=== PATIENT | male | born 1955 | race Caucasian/White ===

== ENCOUNTER 2018-12-24 18:23 | Emergency (ER) | payer MEDICARE ==
[2018-12-24] MEDS ORDERED: DUONEB 0.5-3 MG/3 ml Neb IH ONE (18:35)
[2018-12-24] MEDS ORDERED: PROVENTIL 2.5 MG/3 ML NEB IH ONE ×2 (18:38→18:42)
[2018-12-24 18:54] LABS: BASOPHIL % 0.3 % (0.0-0.4); Basophil (Absolute #) 0.02 (0-0.4); Eosinophil % 1.8 % (0.00-5.0); Eosinophil (Absolute #) 0.11 (0-0.5); Granulocytes % 74.9 % (36.0-66.0); Hematocrit 33.3 % (42-50); Hemoglobin 9.4 gm/dl (12.5-18.0); Lymphocyte (Absolute #) 0.97 (1.0-4.6); Lymphocytes % 15.8 % (24.0-44.0); Mean Corpuscular Hgb Concent. 28.2 g/dl (32-36); Mean Platelet Volume 9.1 fl (6-9.5); Monocyte (Absolute #) 0.44 (0.0-1.3); Monocytes % 7.2 % (0.0-12.0); Platelet Count 216 K/mm3 (150-450); Red Blood Count 3.62 M/mm3 (4.1-5.6); Red Cell Distribution Width 14.2 % (11.5-14.0); White Blood Count 6.1 K/mm3 (4.0-10.5)
[2018-12-24 19:00] LABS: Mean Corpuscular Hemoglobin 25.9 pg (26-32)
--- NOTE | 2018-12-24 19:08 | ERPHSYRPT ---
- History of Present Illness Time Seen by Provider: 12/24/18 19:04 Source: patient, family Exam Limitations: no limitations Patient Subjective Stated Complaint: pt here for sob worse today with productive cough yellow/brown, no fever, chest pain started a week off and on, last 2 days has been consant, pt states pain is substernal, pt wears home 02, open heart 2 month ago, pacemaker in 2017 Triage Nursing Assessment: pt alert, resp labored with excertion, skin w/d/p, nailbeds pale, o2 at 2 l nc, edema to lower legs and red in color. bs dimiinished. abd soft, nontender Physician History: pt had valuloplasy outside hospital 2 months ago and developed SOB today - no Chest pain; no fever , has productive sputu, denies CAD but has pacer; Timing/Duration: today Activities at Onset: none Severity of Dyspnea-Max: moderate Severity of Dyspnea-Current: moderate Possible Cause: occasional episodes Modifying Factors: Improves With: nothing Associated Symptoms: cough, wheezing Allergies/Adverse Reactions: No Known Drug Allergies Allergy (Unverified 12/24/18 18:43) Home Medications: Albuterol Sulfate [Proair Hfa] 2 puffs DAILY 12/24/18 [History] Amiodarone HCl 200 mg BID 12/24/18 [History] Apixaban [Eliquis] 5 mg DAILY 12/24/18 [History] Apremilast [Otezla] 30 mg .ROUTE BID 12/24/18 [History] Aspirin EC 81 mg [Ecotrin 81 mg] 81 mg DAILY 12/24/18 [History] Atorvastatin Calcium 40 mg DAILY 12/24/18 [History] Carvedilol 3.125 mg [Coreg 3.125 MG] 3.125 mg BID 12/24/18 [History] Docusate Sodium 100 mg [Colace 100 MG] 100 mg DAILY 12/24/18 [History] Empagliflozin [Jardiance] 10 mg DAILY 12/24/18 [History] Ferrous Sulfate 325 mg DAILY 12/24/18 [History] Fluoxetine HCl 40 mg DAILY 12/24/18 [History] Furosemide 20 mg DAILY 12/24/18 [History] Ipratropium/Albuterol Sulfate [Iprat-Albut 0.5-3(2.5) mg/3 ml] 3 ml IH Q6HPRN PRN 12/24/18 [History] PANTOPRAZOLE 40 mg Tablet [Protonix 40MG Tablet] 40 mg DAILY 12/24/18 [ History] Spironolactone 25 mg [Aldactone 25 MG] 25 mg DAILY 12/24/18 [History] Umeclidinium Brm/Vilanterol Tr [Anoro Ellipta 62.5-25 Mcg INH] 1 puff DAILY 03/04 [History] glipiZIDE [Glipizide] 5 mg BID 12/24/18 [History] Hx Influenza Vaccination/Date Given: Yes Hx Pneumococcal Vaccination/Date Given: Yes Immunizations Up to Date: Yes - Review of Systems Constitutional: No Fever, No Chills Eyes: No Symptoms Ears, Nose, & Throat: No Symptoms Respiratory: Cough, Dyspnea, Wheezing Cardiac: Edema, No Chest Pain, No Syncope Abdominal/Gastrointestinal: No Abdominal Pain, No Nausea, No Vomiting, No Diarrhea Genitourinary Symptoms: No Dysuria Musculoskeletal: No Back Pain, No Neck Pain Skin: No Rash Neurological: No Dizziness, No Focal Weakness, No Sensory Changes Psychological: No Symptoms Endocrine: No Symptoms All Other Systems: Reviewed and Negative - Past Medical History Pertinent Past Medical History: Yes Cardiac History: Congestive Heart Failure, Coronary Artery Disease, High Cholesterol, Hypertension Respiratory History: COPD Endocrine Medical History: Diabetes Type II Musculoskeletal History: Arthritis GI Medical History: Other Psycho-Social History: Anxiety, Depression - Past Surgical History Past Surgical History: Yes Cardiac: CABG, Cardiac Catheterization, Pacemaker Musculoskeletal: Orthopedic Surgery Other Surgical History: knees - Social History Smoking Status: Former smoker Exposure to second hand smoke: No Drug Use: none Patient Lives Alone: No - Nursing Vital Signs Nursing Vital Signs: Initial Vital Signs Temperature 98.8 F 12/24/18 18:24 Pulse Rate 91 H 12/24/18 18:24 Respiratory Rate 32 H 12/24/18 18:24 Blood Pressure 126/65 12/24/18 18:24 O2 Sat by Pulse Oximetry 88 L 12/24/18 18:24 Pain Scale Pain Intensity 0 - Physical Exam General Appearance: no apparent distress, alert Eye Exam: PERRL/EOMI Neck Exam: normal inspection, supple Respiratory Exam: airway intact, crackles/rales, rhonchi, wheezing Cardiovascular/Chest Exam: normal heart sounds, regular rate/rhythm Abdominal/Gastrointestinal Exam: soft, No tenderness, No distention, No mass Extremity Exam: non-tender, normal range of motion, normal inspection, no calf tenderness, no pedal edema Neurologic Exam: alert, oriented x 3, cooperative, staff analyst II-XII nml as tested, sensation nml, No motor deficits Skin Exam: normal color, warm, No dry SpO2 Interpretation: borderline oxygenation SpO2: 92 - Course Nursing assessment & vital signs reviewed: Yes EKG Interpreted by Me: Left [place] Deviation, Non-specific ST Changes, Other ( pacemaker) - Radiology Exams Chest X-ray Interpretation: Teleradiologist Report, Infiltrates (left lower) Ordered Tests: Active Orders 24 hr Category Date Time Status Curb And Gutter Laborer STAT Care 12/24/18 18:31 Active EKG-ER Only STAT Care 12/24/18 18:31 Active IV Insertion STAT Care 12/24/18 18:46 Active Pulse Oximetry (ED) STAT Care 12/24/18 18:31 Active CHEST 1 VIEW (PORTABLE) Stat Exams 12/24/18 18:31 Completed CHEST WITH CONTRAST [CT] Stat Exams 12/24/18 19:15 Taken CBC W DIFF Stat Lab 12/24/18 18:50 Completed CMP Stat Lab 12/24/18 18:50 Completed D-DIMER QUANTITATION Stat Lab 12/24/18 18:50 Completed Lactic Acid Stat Lab 12/24/18 19:48 Completed Lactic Acid Stat Lab 12/24/18 22:15 Completed NT PRO BNP Stat Lab 12/24/18 18:50 Completed TROPONIN Q3H Lab 12/24/18 18:50 Completed TROPONIN Q3H Lab 12/24/18 22:07 Completed UA W/RFX UR CULTURE Stat Lab 12/24/18 22:40 Completed Respiratory Nebulizer STAT RT 12/24/18 18:31 Completed Respiratory Therapy Assessment DAILY RT 12/24/18 18:47 Active Medication Summary Discontinued Medications Generic Name Dose Route Start Last Admin Trade Name Freq PRN Reason Stop Dose Admin Albuterol Sulfate Confirm 12/24/18 18:38 Proventil 2.5 Mg/3 Ml Neb Administered 12/24/18 18:39 Dose 2.5 mg IH .STK-MED ONE Albuterol Sulfate 2.5 mg 12/24/18 18:42 12/24/18 18:46 Proventil 2.5 Mg/3 Ml Neb IH 12/24/18 18:43 2.5 mg STAT ONE Administration Albuterol/Ipratropium Confirm 12/24/18 18:35 Duoneb 0.5-3 Mg/3 Ml Neb Administered 12/24/18 18:36 Dose 3 ml IH .STK-MED ONE Diazepam 2 mg 12/24/18 21:39 12/24/18 22:22 Valium 10 Mg/2 Ml Syringe IV 12/24/18 21:40 Not Given STAT ONE Diazepam 10 mg 12/24/18 21:50 12/24/18 21:55 Valium 5 Mg PO 12/24/18 21:51 10 mg STAT ONE Administration Diazepam Confirm 12/24/18 21:54 Valium 5 Mg Administered 12/24/18 21:55 Dose 10 mg .ROUTE .STK-MED ONE Diphenhydramine HCl 25 mg 12/24/18 21:37 12/24/18 21:43 Benadryl 50 Mg/Ml IV 12/24/18 21:38 25 mg STAT ONE Administration Diphenhydramine HCl Confirm 12/24/18 21:41 Benadryl 50 Mg/Ml Administered 12/24/18 21:42 Dose 50 mg .ROUTE .STK-MED ONE Ceftriaxone Sodium/Dextrose 1 g in 50 mls @ 100 mls/hr 12/24/18 20:28 21:03 Rocephin 1 Gm-D5w 50 Ml Bag IV 12/24/18 20:57 Infused STAT STA Infusion Ceftriaxone Sodium/Dextrose Confirm 12/24/18 20:34 Rocephin 1 Gm-D5w 50 Ml Bag Administered 12/24/18 20:35 Dose 1 g in 50 mls @ ud IV .STK-MED ONE Lorazepam 1 mg 12/24/18 20:30 12/24/18 20:37 Ativan 1 Mg PO 12/24/18 20:31 1 mg STAT ONE Administration Lorazepam Confirm 12/24/18 20:34 Ativan 1 Mg Administered 12/24/18 20:35 Dose 1 mg .ROUTE .STK-MED ONE Lorazepam 1 mg 12/24/18 20:51 12/24/18 21:01 Ativan 1 Mg PO 12/24/18 20:52 1 mg STAT ONE Administration Lorazepam Confirm 12/24/18 21:00 Ativan 1 Mg Administered 12/24/18 21:01 Dose 1 mg .ROUTE .STK-MED ONE Methylprednisolone Sodium Succinate 125 mg 12/24/18 20:38 12/24/18 20:42 Solu-Medrol 125 Mg IV 12/24/18 20:39 125 mg STAT ONE Administration Methylprednisolone Sodium Succinate Confirm 12/24/18 20:40 Solu-Medrol 125 Mg Administered 12/24/18 20:41 Dose 125 mg .ROUTE .STK-MED ONE Lab/Rad Data: Laboratory Result Diagrams 12/24/18 18:50 12/24/18 18:50 Laboratory Results 12/24/18 12/24/18 12/24/18 Range/Units 22:40 22:15 22:07 WBC (4.0-10.5) K/mm3 RBC (4.1-5.6) M/mm3 Hgb (12.5-18.0) gm/dl Hct (42-50) % MCV (78-100) fl MCH (26-32) pg MCHC (32-36) g/dl RDW (11.5-14.0) % Plt Count (150-450) K/mm3 MPV (6-9.5) fl Gran % (36.0-66.0) % Eos # (Auto) (0-0.5) Absolute Lymphs (auto) (1.0-4.6) Absolute Monos (auto) (0.0-1.3) Lymphocytes % (24.0-44.0) % Monocytes % (0.0-12.0) % Eosinophils % (0.00-5.0) % Basophils % (0.0-0.4) % Absolute Granulocytes (1.4-6.9) Basophils # (0-0.4) D-Dimer (215-500) ng/mL Sodium (137-145) mmol/L Potassium (3.5-5.1) mmol/L Chloride (98-107) mmol/L Carbon Dioxide (22-30) mmol/L Anion Gap (5-15) MEQ/L BUN (9-20) mg/dL Creatinine (0.66-1.25) mg/dL Estimated GFR ML/MIN Glucose (74-106) mg/dL Lactic Acid 0.7 (0.4-2.0) Calcium (8.4-10.2) mg/dL Total Bilirubin (0.2-1.3) mg/dL AST (17-59) U/L ALT (0-50) U/L Alkaline Phosphatase (38-126) U/L Troponin I < 0.012 (0.000-0.034) ng/mL NT-Pro-B Natriuret Pep (0-900) pg/mL Serum Total Protein (6.3-8.2) g/dL Albumin (3.5-5.0) g/dL Urine Color YELLOW (YELLOW) Urine Appearance CLEAR (CLEAR) Urine pH 5.0 (5-6) Ur Specific [place] 1.023 (1.005-1.025) Urine Protein 30 (Negative) Urine Ketones NEGATIVE (NEGATIVE) Urine Blood NEGATIVE (0-5) Kobe/ul Urine Nitrite NEGATIVE (NEGATIVE) Urine Bilirubin NEGATIVE (NEGATIVE) Urine Urobilinogen 2 (0-1) mg/dL Ur Leukocyte Esterase NEGATIVE (NEGATIVE) Urine WBC (Auto) 0-2 (0-5) /HPF Urine RBC (Auto) 3-5 (0-2) /HPF U Epithel Cells (Auto) NONE (FEW) /HPF Urine Bacteria (Auto) NONE SEEN (NEGATIVE) /HPF Urine Mucus (Auto) SLIGHT (NEGATIVE) /HPF Urine Culture Reflexed NO (NO) Urine Glucose NEGATIVE (NEGATIVE) mg/dL 12/24/18 12/24/18 12/24/18 Range/Units 19:48 18:50 18:50 WBC (4.0-10.5) K/mm3 RBC (4.1-5.6) M/mm3 Hgb (12.5-18.0) gm/dl Hct (42-50) % MCV (78-100) fl MCH (26-32) pg MCHC (32-36) g/dl RDW (11.5-14.0) % Plt Count (150-450) K/mm3 MPV (6-9.5) fl Gran % (36.0-66.0) % Eos # (Auto) (0-0.5) Absolute Lymphs (auto) (1.0-4.6) Absolute Monos (auto) (0.0-1.3) Lymphocytes % (24.0-44.0) % Monocytes % (0.0-12.0) % Eosinophils % (0.00-5.0) % Basophils % (0.0-0.4) % Absolute Granulocytes (1.4-6.9) Basophils # (0-0.4) D-Dimer 1060 H* (215-500) ng/mL Sodium (137-145) mmol/L Potassium (3.5-5.1) mmol/L Chloride (98-107) mmol/L Carbon Dioxide (22-30) mmol/L Anion Gap (5-15) MEQ/L BUN (9-20) mg/dL Creatinine (0.66-1.25) mg/dL Estimated GFR ML/MIN Glucose (74-106) mg/dL Lactic Acid 2.1 H (0.4-2.0) Calcium (8.4-10.2) mg/dL Total Bilirubin (0.2-1.3) mg/dL AST (17-59) U/L ALT (0-50) U/L Alkaline Phosphatase (38-126) U/L Troponin I < 0.012 (0.000-0.034) ng/mL NT-Pro-B Natriuret Pep (0-900) pg/mL Serum Total Protein (6.3-8.2) g/dL Albumin (3.5-5.0) g/dL Urine Color (YELLOW) Urine Appearance (CLEAR) Urine pH (5-6) Ur Specific [place] (1.005-1.025) Urine Protein (Negative) Urine Ketones (NEGATIVE) Urine Blood (0-5) Kobe/ul Urine Nitrite (NEGATIVE) Urine Bilirubin (NEGATIVE) Urine Urobilinogen (0-1) mg/dL Ur Leukocyte Esterase (NEGATIVE) Urine WBC (Auto) (0-5) /HPF Urine RBC (Auto) (0-2) /HPF U Epithel Cells (Auto) (FEW) /HPF Urine Bacteria (Auto) (NEGATIVE) /HPF Urine Mucus (Auto) (NEGATIVE) /HPF Urine Culture Reflexed (NO) Urine Glucose (NEGATIVE) mg/dL 08/10/19 08/10/19 Range/Units 18:50 18:50 WBC 6.1 (4.0-10.5) K/mm3 RBC 3.62 L (4.1-5.6) M/mm3 Hgb 9.4 L (12.5-18.0) gm/dl Hct 33.3 L (42-50) % MCV 92.0 (78-100) fl MCH 25.9 L (26-32) pg MCHC 28.2 L (32-36) g/dl RDW 14.2 H (11.5-14.0) % Plt Count 216 (150-450) K/mm3 MPV 9.1 (6-9.5) fl Gran % 74.9 H (36.0-66.0) % Eos # (Auto) 0.11 (0-0.5) Absolute Lymphs (auto) 0.97 L (1.0-4.6) Absolute Monos (auto) 0.44 (0.0-1.3) Lymphocytes % 15.8 L (24.0-44.0) % Monocytes % 7.2 (0.0-12.0) % Eosinophils % 1.8 (0.00-5.0) % Basophils % 0.3 (0.0-0.4) % Absolute Granulocytes 4.60 (1.4-6.9) Basophils # 0.02 (0-0.4) D-Dimer (215-500) ng/mL Sodium 141 (137-145) mmol/L Potassium 4.1 (3.5-5.1) mmol/L Chloride 98 (98-107) mmol/L Carbon Dioxide 35 H (22-30) mmol/L Anion Gap 13.1 (5-15) MEQ/L BUN 23 H (9-20) mg/dL Creatinine 0.92 (0.66-1.25) mg/dL Estimated GFR > 60.0 ML/MIN Glucose 190 H (74-106) mg/dL Lactic Acid (0.4-2.0) Calcium 9.2 (8.4-10.2) mg/dL Total Bilirubin 0.40 (0.2-1.3) mg/dL AST 18 (17-59) U/L ALT 12 (0-50) U/L Alkaline Phosphatase 108 (38-126) U/L Troponin I (0.000-0.034) ng/mL NT-Pro-B Natriuret Pep 635 (0-900) pg/mL Serum Total Protein 7.7 (6.3-8.2) g/dL Albumin 4.1 (3.5-5.0) g/dL Urine Color (YELLOW) Urine Appearance (CLEAR) Urine pH (5-6) Ur Specific [place] (1.005-1.025) Urine Protein (Negative) Urine Ketones (NEGATIVE) Urine Blood (0-5) Kobe/ul Urine Nitrite (NEGATIVE) Urine Bilirubin (NEGATIVE) Urine Urobilinogen (0-1) mg/dL Ur Leukocyte Esterase (NEGATIVE) Urine WBC (Auto) (0-5) /HPF Urine RBC (Auto) (0-2) /HPF U Epithel Cells (Auto) (FEW) /HPF Urine Bacteria (Auto) (NEGATIVE) /HPF Urine Mucus (Auto) (NEGATIVE) /HPF Urine Culture Reflexed (NO) Urine Glucose (NEGATIVE) mg/dL - Progress Progress: improved, re-examined Air Movement: good Progress Note: 12/24/18 22:32 pt could not lay down for CT due to anxiety and this resulted in delay in getting CT until we could get his anxiety treated and controlled to cooperate with that study for dispo. 12/24/18 23:[address] read 12/24/18 23:49 pt does not wish to wait on testing , he would like to have some lasix and ab for his possible infiltrate and steroid for COPD and go home to f/u PCP and has the capacity to make that choice having a normal mental status; he makes this choice even after being advised it is AMA due to risk of a cardiac event , undetected pathology , and potential . he declines admission , transfer, or further eval in ED at this time. 12/24/18 23:52 Blood Culture(s) Obtained: No Antibiotics given: Yes Counseled pt/family regarding: lab results, diagnosis, need for follow-up, rad results - Departure Departure Disposition: AMA Clinical Impression: Left lower lobe pneumonia Condition: Good Critical Care Time: No Referrals: [facility] [Primary Care Provider] - Instructions: Pneumonia, Adult (DC), Shortness of Breath (Dyspnea) (DC), Exacerbation of COPD (DC), Coronary Heart Disease (DC), Heart Failure, Adult (DC ) Additional Instructions: we have not determined the exact cause for your shortness of breath and this could still be a cardiac event with risk of sudden - however it is your choice to proceed as you prefer although we recommend admission to the hospital - we welcome your return at any time; there is also what appears to be pneumonia and an aggravation of your COPD; followup with your Dr for christina workup and testing and treatment and return meantime if not improving or any symptoms of concern.
[2018-12-24 19:15] VITALS: PULSE 80
[2018-12-24 19:16] LABS: ALBUMIN 4.1 g/dL (3.5-5.0); ALKALINE PHOSPHATASE 108 U/L (38-126); ANION GAP 13.1 MEQ/L (5-15); BLOOD UREA NITROGEN 23 mg/dL (9-20); CHLORIDE 98 mmol/L (98-107); Calcium 9.2 mg/dL (8.4-10.2); Carbon Dioxide 35 mmol/L (22-30); Creatinine 1 0.92 mg/dL (0.66-1.25); Glucose 190 mg/dL (74-106); NT PRO BNP 635 pg/mL (0-900); Potassium 4.1 mmol/L (3.5-5.1); SGOT/AST 18 U/L (17-59); SGPT/ALT 12 U/L (0-50); SODIUM 141 mmol/L (137-145); Total Protein 7.7 g/dL (6.3-8.2)
[2018-12-24 20:09] LABS: Lactic Acid 2.1 (0.4-2.0)
[2018-12-24] MEDS ORDERED: ROCEPHIN 1 Gm-D5w 50 ml Bag** 1 G/50 ML IVPB IV STA (20:28)
[2018-12-24] MEDS ORDERED: Ativan 1 MG PO ONE ×2 (20:30→20:51)
[2018-12-24] MEDS ORDERED: ROCEPHIN 1 Gm-D5w 50 ml Bag** 1 G/50 ML IVPB IV ONE (20:34)
[2018-12-24] MEDS ORDERED: Ativan 1 MG ONE ×2 (20:34→21:00)
[2018-12-24] MEDS ORDERED: solu-MEDROL 125 MG IV ONE (20:38)
[2018-12-24] MEDS ORDERED: solu-MEDROL 125 MG ONE (20:40)
[2018-12-24] MEDS ORDERED: BENADRYL 50 MG/ML IV ONE (21:37)
[2018-12-24] MEDS ORDERED: VALIUM 10 MG/2 ML SYRINGE IV ONE (21:39)
[2018-12-24] MEDS ORDERED: BENADRYL 50 MG/ML ONE (21:41)
--- NOTE | 2018-12-24 21:45 | XRAY ---
Indication: Short of breath. Comparison: None Portable chest demonstrates left lung patchy airspace opacities with left base effusion/atelectasis. Remaining heart and right lung unremarkable with left sided pacemaker. Bony thorax intact with sternotomy wires.
[2018-12-24] MEDS ORDERED: Valium 5 MG PO ONE (21:50)
[2018-12-24] MEDS ORDERED: Valium 5 MG ONE (21:54)
[2018-12-24 23:04] LABS: Appearance CLEAR (CLEAR); Bilirubin NEGATIVE (NEGATIVE); Blood NEGATIVE Ery/ul (0-5); Glucose NEGATIVE (NEGATIVE); Ketones NEGATIVE (NEGATIVE); Leukocyte Esterase NEGATIVE (NEGATIVE); Mucus SLIGHT /HPF (NEGATIVE); Nitrite NEGATIVE (NEGATIVE); Protein,Urine Dip 30 (Negative); Specific Gravity 1.023 (1.005-1.025); Urobilinogen 2 mg/dL (0-1); WBC 0-2 /HPF (0-5)
[2018-12-24 23:06] LABS: Bacteria NONE SEEN /HPF (NEGATIVE)
[2018-12-24 23:23] VITALS: BP 126/73
[2018-12-24] MEDS ORDERED: Lasix 40 MG/4 ML ONE (23:50)
[2018-12-24 23:57] VITALS: O2SAT 92
--- NOTE | 2018-12-25 07:10 | XRAY ---
Indication: Short of breath and chest heaviness. Elevated d-dimer. Multiple contiguous axial images obtained through the chest using 80 cc Isovue 370 contrast and PE protocol. Comparison: None There is satisfactory opacification of the pulmonary arteries to include the lobar and segmental branches. No filling defect or pulmonary embolus. Heart is not enlarged and demonstrates left-sided multilead pacemaker. Small mediastinal lymph nodes and tiny left perihilar calcified nodes. No pathologic mediastinal lymphadenopathy. Examination of the lung parenchyma demonstrates mild/moderate left effusion with left base compressive atelectasis. Minimal right base subsegmental atelectasis/scarring. Bony thorax demonstrates multiple old left rib fractures, mild degenerative changes throughout the spine, and sternal hardware. Limited upper abdomen demonstrates hepatic calcified granuloma, 18.4 cm splenomegaly, and tiny gallstone. Pancreas demonstrates fatty replacement. Query pancreatic body and tail minimal stranding, possibly pancreatitis in the right clinical setting. Impression: 1. Negative pulmonary embolus. 2. Left effusion with left base atelectasis. 3. Fatty replaced pancreas. Query body and tail stranding. Rule out pancreatitis. 4. Splenomegaly, tiny gallstone, and evidence for old granulomatous disease. Comment: Preliminary interpretation was made by [facility]. No discrepancy. CTDI 28.13
[2018-12-25] MEDS ORDERED: Lasix 20 MG/2 ML IV ONE (23:59)
== END 2018-12-25 00:10 | disposition left against medical advice (07) ==
LOC: ED 18:23
DX: J18.9 Pneumonia, unspecified organism (principal)
CPT/HCPCS: 36000; 36415; 71045; 71260; 80053; 81001; 83605; 83880; 84484; 85025; 85379; 93005; 93041; 94640; 94760; 96365; 96374; 96375; 99285; J0696; J1200; J1940; J2930; J7609; A9270-GY